=== PATIENT | male | born 1950 | race Caucasian/White ===

== ENCOUNTER 2023-07-20 08:33 | Emergency (ER) | payer OTHER, SELFPAY ==
[2023-07-20 08:46] VITALS: BP 160/64; PULSE 56; RESP 16; TEMP 36.5; O2SAT 100
--- NOTE | 2023-07-20 09:01 | ED.EAR ---
HPI - Ear Problem General Chief complaint: Ear Stated complaint: Right Ear Pain and Bleeding Source: patient Mode of arrival: ambulatory Limitations: no limitations History of Present Illness HPI Narrative: 73 y/o male with hx HTN, presented for c/o right ear pain that occurred last night. States it was severe, lasting 5 minutes, then he felt a pressure release. States 30 minutes later felt blood in ear and had no more pain. Endorses chronic nasal congestion, but takes nothing for congestion. Wears chronic hearing aides. Denies tinnitus, dizziness, n/v/d/f/c. MD Complaint: ear pain Related Data Home Medications Medication Instructions Recorded Confirmed alprazolam 0.25 mg tablet 0.25 mg PO PRN PRN Anxiety 07/20/23 07/20/23 atenolol 100 mg tablet 100 mg PO DAILY 07/20/23 07/20/23 atorvastatin 20 mg tablet 20 mg PO DAILY 07/20/23 07/20/23 hydrochlorothiazide 12.5 mg tablet 12.5 mg PO DAILY 07/20/23 07/20/23 meloxicam 15 mg tablet 15 mg PO DAILY 07/20/23 07/20/23 olmesartan 20 mg tablet 20 mg PO DAILY 07/20/23 07/20/23 trazodone 100 mg tablet 100 mg PO DAILY 07/20/23 07/20/23 vilazodone 40 mg tablet 40 mg PO DAILY 07/20/23 07/20/23 Allergies Allergy/AdvReac Type Severity Reaction Status Date / Time No Known Allergies Allergy Verified 07/20/23 09:34 Review of Systems Review of Systems: CONSTITUTIONAL: Denies malaise, chills, or fever. EYES: Denies visual changes, redness, or discharge. ENT: reports rhinorrhea, congestion, ear pain and bleeding CARDIOVASCULAR: Denies chest pain, palpitations, or edema. RESPIRATORY: Denies cough or dyspnea. GASTROINTESTINAL: Denies abdominal pain, nausea, vomiting, diarrhea SKIN: Denies rash or itching. MUSCULOSKELETAL: Denies myalgia. NEUROLOGIC: Denies headache. All systems reviewed & are unremarkable except as noted in HPI and below PMFSH Past Medical History Medical History (Updated 07/20/23 @ 09:53 by Stephie Paige APRN) Hypertension Comments At time of signature, agree with nursing past medical, surgical, social and family history. There is no relevant family history pertinent to the presenting complaint Exam Narrative: GENERAL: Well-appearing ENT: Nares clear. Mucous membranes moist. Left TM pearly lipscomb with dull light reflex; Right TM ruptured with bloody drainage in canal. no tragal tenderness. Oropharynx not erythematous without lesions. NECK: Supple. No lymphadenopathy CHEST: Clear to auscultation, breath sounds equal. HEART: Regular rate and rhythm. No murmur heard. SKIN: Warm, dry. NEURO: Alert and oriented x3. PSYCH: Normal mood and affect Course Course Emergency Course: Patient is aware of diagnosis, understands and agrees to treatment plan. Anticipatory guidance given. Patient agrees to follow-up as directed and is aware of reasons to seek care at the emergency department. Portions of this record may have been created with voice recognition software Level of Care: Express Care Visit Vital Signs Vital signs: Vital Signs Temperature 97.7 F 07/20/23 08:46 Pulse Rate 56 L 07/20/23 08:46 Respiratory Rate 16 07/20/23 08:46 Blood Pressure 160/64 H 07/20/23 08:46 Pulse Oximetry 100 07/20/23 08:46 Temperature 97.7 F 07/20/23 08:46 Pulse Rate 56 L 07/20/23 08:46 Respiratory Rate 16 07/20/23 08:46 Blood Pressure 160/64 H 07/20/23 08:46 Pulse Oximetry 100 07/20/23 08:46 Reviewed Medical Decision Making MDM Narrative Medical decision making narrative: Discussed physical exam findings consistent with right TM rupture; advised supportive measures and signs/symptoms to go to the ER. Pt will avoid wearing the hearing aide in the right ear. Will f/u with ENT. Patient is appropriate for outpatient treatment and follow-up. Differential Diagnosis Differential Diagnosis: Coronavirus, strep pharyngitis, allergic rhinitis, upper respiratory tract infection, sinusitis, rhinosinusitis, nasopharyngitis, viral pharyngitis,
== END 2023-07-20 09:25 | disposition home or self-care (01) ==
PROVIDERS: Emergency Provider Nurse Practitioner Family
DX: H65.91 Unspecified nonsuppurative otitis media, right ear (principal); H72.91 Unspecified perforation of tympanic membrane, right ear; I10 Essential (primary) hypertension
CPT/HCPCS: 99213; G0463

== ENCOUNTER 2023-07-27 08:09 | Emergency (ER) | payer OTHER, SELFPAY ==
--- NOTE | 2023-07-27 08:13 | ED.EAR ---
HPI - Ear Problem General Chief complaint: Upper Respiratory Infection Stated complaint: EAR RECHECK Time Seen by Provider: 07/27/23 08:33 Source: patient, RN notes reviewed and old records reviewed Mode of arrival: ambulatory Limitations: no limitations History of Present Illness HPI Narrative: 73-year-old male presents to the [facility] to have his right ear rechecked. Patient was seen 1 week ago, diagnosed with an otitis media with our right tympanic membrane rupture. Wants to make sure it is safe to use his hearing aids and that his ear is healing. Took antibiotic in used ear drops Tried making a follow-up appointment with ENT, and of August was the earliest Reports that he has also tried calling his insurance company for referral for ENT. Location: right ear Related Data Home Medications Medication Instructions Recorded Confirmed alprazolam 0.25 mg tablet 0.25 mg PO PRN PRN Anxiety 07/20/23 07/27/23 atenolol 100 mg tablet 100 mg PO DAILY 07/20/23 07/27/23 atorvastatin 20 mg tablet 20 mg PO DAILY 07/20/23 07/27/23 hydrochlorothiazide 12.5 mg tablet 12.5 mg PO DAILY 07/20/23 07/27/23 meloxicam 15 mg tablet 15 mg PO DAILY 07/20/23 07/27/23 olmesartan 20 mg tablet 20 mg PO DAILY 07/20/23 07/27/23 trazodone 100 mg tablet 100 mg PO DAILY 07/20/23 07/27/23 vilazodone 40 mg tablet 40 mg PO DAILY 07/20/23 07/27/23 Allergies Allergy/AdvReac Type Severity Reaction Status Date / Time No Known Allergies Allergy Verified 07/20/23 09:34 Review of Systems Review of Systems: All systems reviewed & are unremarkable except as noted in HPI and below Constitutional: Constitutional: Reports no additional constitutional complaints Eyes: Eyes: Reports no additional eye complaints ENT: Reports as per HPI Cardiovascular: Cardiovascular: Reports no additional cardiovascular complaints, Denies chest pain and Denies dyspnea Respiratory: Respiratory: Reports no additional respiratory complaints, Denies chest congestion, Denies cough and Denies dyspnea Gastrointestinal: Gastrointestinal: Reports no additional gastrointestinal complaints, Denies abdominal pain, Denies nausea and Denies vomiting Musculoskeletal: Musculoskeletal: Reports no additional musculoskeletal complaints Integumentary/Breasts: Skin/Breast: Reports system reviewed and no additional complaints, except as docu Neurologic: Reports system reviewed and no additional complaints, except as documented Psychiatric: Psychiatric: Reports no additional psychiatric complaints Allergic/Immunologic: Allergic/Immunologic: Reports no additional allergic/immunologic complaints PMFSH Past Medical History Medical History Hypertension Comments At the time of my signature, I reviewed and agree with the nursing past medical, surgical, social, and family history. There is no relevant family history pertinent to the patient complaint. Exam Const: General: cooperative, healthy appearing, comfortable, no acute distress, well developed, alert and well nourished Nutritional Appearance: well nourished Orientation/consciousness: patient oriented x3 Limitations: no limitations HENMT: Head: normal to inspection Ears: hearing grossly normal bilaterally, external ears normal and Abnormal EAC present other (Dry blood noted to the inner ear canal. Unable to completely visualize TM) Outer ear/TM images: 1. 2. Dry blood noted, unable to visualize 2/3 of the TM, visualized TM pearly lipscomb. No erythema. Unable to visualize if the tympanic membrane is for still ruptured. Face/Nose/Sinus: Normal external nose present, Normal nares present, Normal nasal mucous membranes and turbinates present, normal facial exam and face symmetric Face and sinus: normal facial exam and face symmetric Mouth: Yes Normal oral and palatal mucosa present, Yes lip normal and Yes moist mucous membranes Throat: posterior oropharynx normal and uvula midline Eyes:
[2023-07-27 08:24] VITALS: BP 135/97; PULSE 57; RESP 16; TEMP 36.6; O2SAT 100
== END 2023-07-27 09:00 | disposition home or self-care (01) ==
PROVIDERS: Emergency Provider Nurse Practitioner
DX: H72.91 Unspecified perforation of tympanic membrane, right ear (principal); I10 Essential (primary) hypertension
CPT/HCPCS: 99211; G0463